=== PATIENT | female | born 1940 | race Caucasian/White ===

== ENCOUNTER 2022-02-12 14:21 | Outpatient (CLI) | payer MEDICARE, OTHER ==
[2022-02-12] MEDS ORDERED: iohexol 350MG/ML 100ml bottle IV ONE (14:42)
== END 2022-02-12 23:59 | disposition home or self-care (01) ==
LOC: RAD 14:21
PROVIDERS: ATTEND Internal Medicine
DX: R91.1 Solitary pulmonary nodule (principal); I70.0 Atherosclerosis of aorta; I82.4Z2 Acute embolism and thrombosis of unspecified deep veins of left distal lower extremity; I10 Essential (primary) hypertension; Z86.718 Personal history of other venous thrombosis and embolism
CPT/HCPCS: 71275; J3490; Q9967; A4349